=== PATIENT | male | born 1985 | race Caucasian/White ===

== ENCOUNTER → 2018-11-18 | Outpatient (CLI) | payer BC ==
--- NOTE | 2018-11-19 12:42 | US ---
EXAMINATION TYPE: US groin LT DATE OF EXAM: 11/18/2018 COMPARISON: NONE CLINICAL HISTORY: R10.30 Groin Pain. Pain left groin for 6 months, getting worse Scanned within left groin, area of concern, lymph node noted = 2.1 x 0.5 x 1.4cm Suspicious masses or cysts are not otherwise evident. Consider muscle injury. If there is concern injury at the muscle insertion at the insertion on the pe lvis, MRI may be more sensitive for identification. IMPRESSION: 1. Lymph node in the region of the patient's reported left groin pain. 2. No suspicious inguinal hernia by ultrasound.
== END ==
LOC: RADUSWWP 16:51
PROVIDERS: ATTEND Family Medicine
DX: R10.30 Lower abdominal pain, unspecified (principal); R10.2 Pelvic and perineal pain

== ENCOUNTER → 2019-06-13 | Outpatient (CLI) | payer BC ==
--- NOTE | 2019-06-13 16:22 | US ---
EXAMINATION TYPE: US scrotum with doppler. TECHNIQUE: Grayscale and color Doppler Duplex imaging performed of the scrotum. DATE OF EXAM: 06/13/2019 COMPARISON: NONE CLINICAL HISTORY: 33-year-old male N50.812 LT TESTICULAR PAIN. FINDINGS: EXAM MEASUREMENTS: TESTICLES: Right Testicle: 4.1 x 1.8 x 2.9 cm Left Testicle: 4.3 x 2.4 x 3.2 cm Bilateral testicular microlithiasis. Multiple conglomerate masses within the left testicle measures 4.6 x 1.9 x 2.5 cm. Demonstrates hypervascularity and microcalcifications. EPIDIDYMIS HEAD: Right Epididymis: 1.0 x 0.6 cm Left Epididymis: 0.8 x 1.0 cm Doppler performed to assess for testicular vascularity; good bilateral color flow and waveforms are s een. There is no evidence of testicular torsion. Presence of hydroceles: none Presence of varicoceles: none IMPRESSION: 1. Multiple vascular, conglomerate masses involving most of the left testicular parenchyma. There is background of testicular microlithiasis. Further urologic evaluation and management recommended for f indings highly suggestive of testicular carcinoma. 2. No sonographic evidence for testicular torsion. No hydrocele.
== END | disposition home or self-care (01) ==
LOC: RADUSWWP 15:36
PROVIDERS: ATTEND Family Medicine
DX: N50.1 Vascular disorders of male genital organs (principal); N50.89 Other specified disorders of the male genital organs
CPT/HCPCS: 76870; 93975

== ENCOUNTER → 2019-06-19 | Outpatient (CLI) | payer BC ==
--- NOTE | 2019-06-20 09:25 | CT ---
EXAMINATION TYPE: CT abdomen pelvis wo/w con DATE OF EXAM: 06/19/2019 COMPARISON: Scrotal ultrasound dated 06/13/2019 HISTORY: Left sided testicular mass. CT DLP: 861.2 mGycm Automated exposure control for dose reduction was used. TECHNIQUE: Helical acquisition of images was performed from the lung bases through the pelvis. CONTRAST: Performed with Oral Contrast and without and with IV Contrast, patient injected with 100ml mL of Isov ue 300. FINDINGS: Unenhanced images demonstrate no evidence of nephrolithiasis nor cholelithiasis. No intramu ral hematoma of the aorta. LUNG BASES: No significant abnormality is appreciated. LIVER/GB: No suspicious hepatic mass. No radiopaque calculi in the gallbladder. PANCREAS: No significant abnormality is seen. SPLEEN: No significant abnormality is seen. ADRENALS: No significant abnormality is seen. KIDNEYS: There is a punctate 3 mm too small to accurately characterize left renal lesion in the mid p ole on series 9 image 23. Remainder the kidneys enhance homogeneously. No uroepithelial thickening. N o hydronephrosis. No nephrolithiasis. FREE AIR: No free air is visualized. ADENOPATHY: No greater than 1 cm short axis lymph node in the abdomen or pelvis. No suspicious adeno liliana in the abdomen or pelvis. Few scattered sub-5 mm mesenteric lymph nodes. OSSEOUS STRUCTURES: No significant abnormality is seen. BOWEL: Appendix is air-filled and within normal limits. Small bowel is unremarkable. Large bowel is limited as oral contrast does not extend into the large bowel and there is moderate degree colonic fe roxy stasis and nondistention of the sigmoid colon. No dilated large or small bowel. IMPRESSION: NO SUSPICIOUS ADENOPATHY IN THE ABDOMEN OR PELVIS. NO SUSPICIOUS OSSEOUS LESION. NO CT EVIDENCE OF SCERAL METASTASIS IN THE ABDOMEN OR PELVIS.
== END | disposition home or self-care (01) ==
LOC: RADCTMAIN 15:45
PROVIDERS: ATTEND Nurse Practitioner Family
DX: N50.9 Disorder of male genital organs, unspecified (principal); R93.812 Abnormal radiologic findings on diagnostic imaging of left testicle
CPT/HCPCS: 74178; Q9967

== ENCOUNTER → 2019-06-22 | Outpatient (CLI) | payer BC | END | disposition home or self-care (01) | LOC: LABWHC1 15:08 | PROVIDERS: ATTEND Urology | DX: N50.9 Disorder of male genital organs, unspecified (principal) | CPT/HCPCS: 36415 ==

== ENCOUNTER → 2019-10-28 | Outpatient (CLI) | payer BC ==
--- NOTE | 2019-10-29 22:16 | XR ---
EXAMINATION TYPE: XR chest 2V DATE OF EXAM: 10/28/2019 COMPARISON: None HISTORY: 34-year-old male C62.92, testicular cancer TECHNIQUE: Frontal and lateral views FINDINGS: The cardiomediastinal silhouette, aorta, and pulmonary vasculature are within normal limits. Lungs an d pleural spaces are clear. IMPRESSION: No acute cardiopulmonary process.
--- NOTE | 2019-10-29 22:56 | CT ---
EXAMINATION TYPE: CT abdomen pelvis w con DATE OF EXAM: 10/28/2019 COMPARISON: October 18, 2019 HISTORY: 33-year-old male C62.92, follow-up testicular ca TECHNIQUE: Contiguous axial scanning of the abdomen and pelvis following administration of 100 ml Iso todd 300 IV contrast. Delayed images through the kidneys and coronal/sagittal reconstructions perform ed. CT DLP: 456.1 mGycm Automated exposure control for dose reduction was used. FINDINGS: Heart normal size without pericardial effusion. Lung bases clear without pleural effusion. No focal liver lesion or biliary ductal dilatation. Portal venous system is patent. Gallbladder, adrenal glands, kidneys, spleen, and pancreas appear within normal limits. No dilated small bowel, free fluid, or free air. Normal appendix. Scattered mild to moderate stool burden. Oral contrast progressed to the distal cantrell sverse colon. No pericolonic inflammatory change. Scattered small mesenteric and retroperitoneal lymph nodes are unchanged. No progressive or enlarged abdominal lymph nodes are identified. Bladder urine distended. Prostate gland measures 4.0 cm wide. No abnormal fluid collection in the pel vis or pelvic lymphadenopathy seen. Bones: No osseous destructive process. IMPRESSION: NO EVIDENCE FOR METASTATIC DISEASE IN THE ABDOMEN OR PELVIS.
== END | disposition home or self-care (01) ==
LOC: RADCTMAIN 09:57
PROVIDERS: ATTEND Urology
DX: C62.92 Malignant neoplasm of left testis, unspecified whether descended or undescended (principal); Z88.1 Allergy status to other antibiotic agents
CPT/HCPCS: 71046; 74177; Q9967

== ENCOUNTER → 2020-04-29 | Outpatient (CLI) | payer BC ==
--- NOTE | 2020-04-29 15:55 | XR ---
EXAMINATION TYPE: XR chest 2V DATE OF EXAM: 04/29/2020 COMPARISON: NONE HISTORY: Chest pain TECHNIQUE: Frontal and lateral views of the chest are obtained. FINDINGS: There is no focal air space opacity. No evidence for pneumothorax. No pleural effusion. The cardiac silhouette size is within normal limits. The osseous structures are grossly intact. IMPRESSION: 1. No acute cardiopulmonary process.
--- NOTE | 2020-04-30 03:59 | CT ---
EXAMINATION TYPE: CT abdomen pelvis w con DATE OF EXAM: 04/29/2020 COMPARISON: HISTORY: Follow up for testicular cancer. CT DLP: 512.7 mGycm Automated exposure control for dose reduction was used. CONTRAST: Performed with IV Contrast, patient injected with 100ml mL of Isovue 300. Lung bases are clear. There is no pleural effusion. Heart size is normal. There is no pericardial eff usion. Liver spleen stomach pancreas gallbladder appear normal. Bile ducts are not dilated. There is no adre nal mass. Kidneys show satisfactory contrast opacification. There is no hydronephrosis. Delayed image s show normal renal excretion. There is no retroperitoneal adenopathy. Ureters are not dilated. There is normal contrast opacificati on of the small bowel. Appendix is not seen. There is no sign of thickened appendix. There is no mese nteric edema. There is no ascites or free air. There is no bowel obstruction. Bladder distends smooth ly. There is no inguinal hernia. Left testicle appears absent. There is no evidence of a pelvic mass. There is no free fluid in the pelvis. There is no evidence of pelvic lymphadenopathy. The lumbar vertebra have normal alignment. The posterior elements are intact. Bony pelvis is intact. Hip joints appear normal. IMPRESSION: Negative CT scan abdomen and pelvis. No evidence of recurrent tumor. No adverse change compared to ol d exam.
== END | disposition home or self-care (01) ==
LOC: RADCTMAIN 15:35
PROVIDERS: ATTEND Urology
DX: C62.92 Malignant neoplasm of left testis, unspecified whether descended or undescended (principal)
CPT/HCPCS: 71046; 74177; Q9967

== ENCOUNTER → 2020-05-09 | Outpatient (CLI) | payer BC | END | disposition home or self-care (01) | LOC: LABWHC1 11:21 | PROVIDERS: ATTEND Urology | DX: C62.90 Malignant neoplasm of unspecified testis, unspecified whether descended or undescended (principal) | CPT/HCPCS: 36415 ==

== ENCOUNTER → 2020-11-28 | Outpatient (CLI) | payer BC ==
[2020-11-28 18:11] LABS: African American GFR (CKD) >90 (>60 ml/min/1.73 sqM); Blood Urea Nitrogen 15 mg/dL (9-20); LDH 412 U/L (313-618); Non-African American GFR(CKD) >90 (>60 ml/min/1.73 sqM)
--- NOTE | 2020-11-28 22:15 | XR ---
EXAMINATION TYPE: XR chest 2V DATE OF EXAM: 11/28/2020 COMPARISON: 04/29/2020 INDICATION: Left testicular cancer TECHNIQUE: Frontal and lateral views of the chest are obtained. FINDINGS: The heart size is normal. The pulmonary vasculature is normal. The lungs are clear. IMPRESSION: 1. No acute pulmonary process. 2. No suspicious changes to suggest metastatic disease.
--- NOTE | 2020-11-29 18:23 | CT ---
EXAMINATION TYPE: CT abdomen pelvis w con DATE OF EXAM: 11/28/2020 COMPARISON: 04/29/2020 INDICATION: testicular CA DLP: 523 mGycm, Automated exposure control for dose reduction was used. CONTRAST: 100 mL of Isovue 300. Study performed with Oral Contrast TECHNIQUE: Axial images were obtained from above the diaphragm to the pubic rami in the axial plane a t 5 mm thick sections. Reconstructed images are reviewed on the computer in the coronal plane. FINDINGS: Limited CT sections are obtained the lung bases. The lung bases are clear. CT ABDOMEN: Liver: Normal Spleen: Normal Pancreas: Normal Adrenal glands: The adrenal glands are normal. Gallbladder: Normal Kidneys: No masses are evident. No hydronephrosis is present. No cysts are present. Delayed images were obtained through the kidneys, which remain unremarkable. Aorta: Normal Inferior vena cava: Normal. CT PELVIS: Loops of bowel within the abdomen and pelvis are normal. There are loops of bowel which are incom pletely distended or lack oral contrast limiting their evaluation. Appendix: Normal as visualized. Urinary bladder: Normal. Genitourinary structures: Prostate is normal Osseous structures: No suspicious lytic or sclerotic lesions. Lymphadenopathy: No suspicious lymphadenopathy is evident. Periaortic adenopathy at the level of the renal arteries is not identified. Iliac and inguinal obturator canal para-aortic and retrocaval adeno liliana is not evident. IMPRESSIONS: 1. No suspicious changes to suggest metastatic disease
== END | disposition home or self-care (01) ==
LOC: RADCTMAIN 16:18
PROVIDERS: ATTEND Urology
DX: C62.92 Malignant neoplasm of left testis, unspecified whether descended or undescended (principal)
CPT/HCPCS: 82565; 83615; 84520; 82105; 71046; 74177; Q9967

== ENCOUNTER → 2021-06-16 | Outpatient (CLI) | payer BC ==
--- NOTE | 2021-06-17 07:20 | CT ---
EXAMINATION TYPE: CT ChestAbdPelvis w con DATE OF EXAM: 06/16/2021 COMPARISON: CT abdomen and pelvis November 28, 2020 and older studies. HISTORY: Follow up for testicular cancer. CT DLP: 829.3 mGycm. Automated Exposure Control for Dose Reduction was Utilized. CONTRAST: CT scan of the thorax, abdomen and pelvis is performed with oral and with IV Contrast, patient inject ed with 100ml mL of Isovue 300. FINDINGS: LUNGS: The lungs are grossly clear, there is no concerning parenchymal mass or nodule identified. T here is no pleural effusion or pneumothorax seen. The tracheobronchial tree is patent. MEDIASTINUM: There are no greater than 1 cm hilar or mediastinal lymph nodes. No cardiomegaly or pe ricardial effusion is seen. OTHER: Subareolar flame-shaped gynecomastia bilaterally is present. LIVER/GB: No significant abnormality is appreciated. PANCREAS: No significant abnormality is seen. SPLEEN: No significant abnormality is seen. ADRENALS: No significant abnormality is seen. KIDNEYS: No significant abnormality is seen. BOWEL: Oral contrast reaches level of the right colon. No suspicious small or large bowel dilatation. Normal-appearing appendix from the cecum. GENITAL ORGANS: Left testicle is surgically absent. LYMPH NODES: No new greater than 1cm abdominal or pelvic lymph nodes are appreciated with particular attention to the retroperitoneum. OSSEOUS STRUCTURES: No significant abnormality is seen. OTHER: No significant additional abnormality is seen. IMPRESSION: No suspicious new mass or adenopathy to suggest neoplastic recurrence.
== END | disposition home or self-care (01) ==
LOC: RADCTMAIN 15:36
PROVIDERS: ATTEND Urology
DX: C62.10 Malignant neoplasm of unspecified descended testis (principal)
CPT/HCPCS: 71260; 74177; Q9967

== ENCOUNTER 2022-01-26 09:44 | Emergency (ER) | payer BC ==
[2022-01-26 09:50] VITALS: RESP 18; TEMP 98.2
[2022-01-26] MEDS ORDERED: SODIUM CHLORIDE 0.9% 1,000 ML IV STA (10:05)
--- NOTE | 2022-01-26 10:12 | ED ---
Arrhythmia/Palpitations HPI - General Chief Complaint: Arrhythmia/Palpitations Stated Complaint: palpitations Time Seen by Provider: 01/26/22 10:03 Source: patient, family, RN notes reviewed, old records reviewed Mode of arrival: ambulatory Limitations: no limitations - History of Present Illness Initial Comments: This is a well-appearing 36-year-old male who presents to the emergency room with complaints of palpitations that lasted four hours. Patient states he woke up to get ready for work at 4 AM and felt palpitations unti aroudn 8 AM. Symptoms have resolved at this time. He continues to have chest tightness at this time. He states he does have some nausea but no vomiting. No shortness of breath. Denies any diaphoresis. He denies any medical history, no medicines on a daily basis. He states that he was diagnosed with an upper respiratory infection last week and finished his prescribed antibiotics and steroids. He is a nonsmoker, no family history of sudden cardiac . MD Complaint: rapid heart beat, "heart racing", "skipped beats", palpitations -: hour(s) (4) Context: occurred during rest Associated Symptoms: nausea/vomiting (no vomiting) - Related Data Home Medications Medication Instructions Recorded Confirmed Fluticasone Furoate [Flonase 1 spray EA NOSTRIL BID 01/26/22 01/26/22 Sensimist] Multivitamin/Iron/Folic Acid 1 tab PO DAILY 01/26/22 01/26/22 [Centrum Adults Tablet] Allergies Allergy/AdvReac Type Severity Reaction Status Date / Time cefprozil [From Cefzil] Allergy Rash/Hives Verified 01/26/22 10:56 Review of Systems ROS Statement: Those systems with pertinent positive or pertinent negative responses have been documented in the HPI. ROS Other: All systems not noted in ROS Statement are negative. Past Medical History Past Medical History: Cancer Additional Past Medical History / Comment(s): testicular CA 2019 History of Any Multi-Drug Resistant Organisms: None Reported Past Surgical History: Hernia Repair, Orthopedic Surgery Additional Past Surgical History / Comment(s): testicular surgery Past Psychological History: Anxiety Smoking Status: Former smoker Past Alcohol Use History: Occasional Past Drug Use History: None Reported General Exam Limitations: no limitations General appearance: alert, in no apparent distress Head exam: Present: atraumatic Eye exam: Absent: scleral icterus, conjunctival injection, periorbital swelling ENT exam: Present: normal oropharynx, mucous membranes moist Expanded Mouth exam: Present: normal external inspection, tongue normal, tongue elevation. Absent: drooling, trismus, muffled voice Throat exam: negative: tonsillar erythema, tonsillomegaly, tonsillar exudate, R peritonsillar mass, L peritonsillar mass Respiratory exam: Present: normal lung sounds bilaterally. Absent: respiratory distress, wheezes, rales, rhonchi, stridor, chest wall tenderness, accessory muscle use Cardiovascular Exam: Present: regular rate, normal rhythm GI/Abdominal exam: Present: soft. Absent: distended, tenderness, guarding, rebound, rigid Extremities exam: Present: normal capillary refill. Absent: pedal edema Back exam: Present: normal inspection, full ROM. Absent: tenderness, CVA tenderness (R), CVA tenderness (L), rash noted Neurological exam: Present: alert, oriented X3 Psychiatric exam: Present: normal affect, normal mood Skin exam: Present: warm, dry, intact, normal color. Absent: rash, cyanosis, diaphoretic, petechiae, pallor Course Vital Signs 01/26/22 01/26/22 09:44 11:19 Temperature 98.2 F Pulse Rate 89 70 Respiratory 18 18 Rate Blood Pressure 138/85 124/85 O2 Sat by Pulse 100 100 Oximetry EKG Findings - EKG Results: EKG: sinus rhythm (Ventricular rate 83, IA interval 0.163, QRS 0.89, QTC 0.394; borderline right axis deviation) Medical Decision Making - Medical Decision Making Chest x-ray shows no acute cardiopulmonary process. EKG shows sinus rhythm. Troponin is negative at 0.012. There is no evidence of leukocytosis and hemoglobin and hematocrit are stable. Electrolytes are unremarkable. At this time I do not have a specific cause for the patient's palpitations. We did discuss dehydration, caffeine use and anxiety. Vital signs are stable. There was no evidence of ectopy on the monitor during ER stay. Patient was instructed to increase his fluid intake follow-up with his primary care doctor this week return to the emergency room with any new or concerning symptoms. Case discussed with Dr. Spencer - Lab Data Result diagrams: 01/26/22 10:09 01/26/22 10:09 Lab Results 01/26/22 01/26/22 01/26/22 Range/Units 10:09 10:09 10:09 WBC 6.5 (3.8-10.6) k/uL RBC 5.43 (4.30-5.90) m/uL Hgb 16.3 (13.0-17.5) gm/dL Hct 48.8 (39.0-53.0) % MCV 90.0 (80.0-100.0) fL MCH 30.0 (25.0-35.0) pg MCHC 33.3 (31.0-37.0) g/dL RDW 12.1 (11.5-15.5) % Plt Count 249 (150-450) k/uL MPV 7.9 Neutrophils % 67 % Lymphocytes % 19 % Monocytes % 8 % Eosinophils % 3 % Basophils % 1 % Neutrophils # 4.3 (1.3-7.7) k/uL Lymphocytes # 1.3 (1.0-4.8) k/uL Monocytes # 0.5 (0-1.0) k/uL Eosinophils # 0.2 (0-0.7) k/uL Basophils # 0.0 (0-0.2) k/uL Sodium 138 (137-145) mmol/L Potassium 4.0 (3.5-5.1) mmol/L Chloride 103 (98-107) mmol/L Carbon Dioxide 25 (22-30) mmol/L Anion Gap 10 mmol/L BUN 12 (9-20) mg/dL Creatinine 1.03 (0.66-1.25) mg/dL Est GFR (CKD-EPI)AfAm >90 (>60 ml/min/1.73 sqM) Est GFR (CKD-EPI)NonAf >90 (>60 ml/min/1.73 sqM) Glucose 140 H (74-99) mg/dL Calcium 9.7 (8.4-10.2) mg/dL Magnesium 2.0 (1.6-2.3) mg/dL Total Bilirubin 0.6 (0.2-1.3) mg/dL AST 35 (17-59) U/L ALT 33 (4-49) U/L Alkaline Phosphatase 71 (38-126) U/L Troponin I <0.012 (0.000-0.034) ng/mL Total Protein 6.6 (6.3-8.2) g/dL Albumin 4.4 (3.5-5.0) g/dL Disposition Clinical Impression: Palpitations Disposition: HOME SELF-CARE Condition: Good Instructions (If sedation given, give patient instructions): Heart Palpitations (ED) Additional Instructions: Increase your fluid intake. Follow-up with the primary care doctor this week. Return to the emergency room with any new or concerning symptoms Is patient prescribed a controlled substance at d/c from ED?: No Referrals: Cecil Roberts III, MD [Primary Care Provider] - 1-2 days Time of Disposition: 11:23
[2022-01-26 10:26] LABS: Basophils % (A) 1 %; Eosinophils # (A) 0.2 k/uL (0-0.7); Eosinophils % (A) 3 %; HCT 48.8 % (39.0-53.0); HGB 16.3 gm/dL (13.0-17.5); Lymphocytes # (A) 1.3 k/uL (1.0-4.8); Lymphocytes % (A) 19 %; MCHC 33.3 g/dL (31.0-37.0); Mean Platelet Volume 7.9; Monocytes # (A) 0.5 k/uL (0-1.0); Monocytes % (A) 8 %; Neutrophils # (A) 4.3 k/uL (1.3-7.7); Neutrophils % (A) 67 %; Platelet Count 249 k/uL (150-450); RBC 5.43 m/uL (4.30-5.90); RDW 12.1 % (11.5-15.5); WBC 6.5 k/uL (3.8-10.6)
--- NOTE | 2022-01-26 10:36 | XR ---
EXAMINATION TYPE: XR chest 2V DATE OF EXAM: 01/26/2022 COMPARISON: 11/28/2020 HISTORY: 36-year-old male dysrhythmia TECHNIQUE: PA and lateral views FINDINGS: The cardiomediastinal silhouette, aorta, and pulmonary vasculature are within normal limits. Lungs an d pleural spaces are clear. IMPRESSION: No acute cardiopulmonary process.
[2022-01-26 10:48] LABS: ALT 33 U/L (4-49); AST 35 U/L (17-59); African American GFR (CKD) >90 (>60 ml/min/1.73 sqM); Albumin 4.4 g/dL (3.5-5.0); Alkaline Phosphatase 71 U/L (38-126); Anion Gap 10 mmol/L; Blood Urea Nitrogen 12 mg/dL (9-20); Calcium 9.7 mg/dL (8.4-10.2); Carbon Dioxide 25 mmol/L (22-30); Chloride 103 mmol/L (98-107); Glucose 140 mg/dL (74-99); Non-African American GFR(CKD) >90 (>60 ml/min/1.73 sqM); Sodium 138 mmol/L (137-145); Total Bilirubin 0.6 mg/dL (0.2-1.3); Total Protein 6.6 g/dL (6.3-8.2)
[2022-01-26 11:20] VITALS: BP 124/85; PULSE 70
== END 2022-01-26 11:57 | disposition home or self-care (01) ==
LOC: EC 09:44
DX: R00.2 Palpitations (principal); R07.89 Other chest pain; R11.0 Nausea; Z87.891 Personal history of nicotine dependence; Z88.1 Allergy status to other antibiotic agents
CPT/HCPCS: 36415; 71046; 80053; 83735; 84484; 85025; 93005; 96360; 99285

== ENCOUNTER → 2022-02-27 | Outpatient (CLI) | payer BC | END | disposition home or self-care (01) | LOC: LABWHC1 15:35 | PROVIDERS: ATTEND Urology | DX: C62.10 Malignant neoplasm of unspecified descended testis (principal) | CPT/HCPCS: 36415; 82105; 83615 ==

== ENCOUNTER → 2022-03-17 | Outpatient (CLI) | payer BC ==
--- NOTE | 2022-03-18 19:11 | CA ---
Transthoracic Echo Report Name: Ilya Hummel Age: 36 Gender: M : 1985 Exam Date: 03/17/2022 15:08 Exam Location: [facility] Ht (in): 72 Wt (lb): 180 Ordering Physician: Cecil Roberts MD Attending/Referring Phys: SOFIA, Armando Pre Wave Assembler Baylee Ferrara RDCS Procedure CPT: Indications: R00.0 TACHYCARDIA, UNSPECIFIED Cardiac Hx: Technical Quality: Good Contrast 1: N/A Total Dose (mL): Contrast 2: Total Dose (mL): MEASUREMENTS (Male / Female) Normal Values 2D ECHO LV Diastolic Diameter PLAX 4.5 cm 4.2 - 5.9 / 3.9 - 5.3 cm LV Systolic Diameter PLAX 3.1 cm IVS Diastolic Thickness 1.0 cm 0.6 - 1.0 / 0.6 - 0.9 cm LVPW Diastolic Thickness 1.2 cm 0.6 - 1.0 / 0.6 - 0.9 cm LV Relative Wall Thickness 0.5 RV Internal Dim ED PLAX 2.2 cm LA Systolic Diameter LX 3.2 cm 3.0 - 4.0 / 2.7 - 3.8 cm M-MODE Aortic Root Diameter MM 3.3 cm LA Systolic Diameter MM 3.1 cm LA Ao Ratio MM 0.9 MV E Point Septal Separation 0.3 cm AV Cusp Separation MM 2.2 cm DOPPLER MV Area PHT 2.8 cm??? Mitral E Point Velocity 64.2 cm/s Mitral A Point Velocity 49.2 cm/s Mitral E to A Ratio 1.3 MV Deceleration Time 267.8 ms MV E' Velocity 9.5 cm/s Mitral E to MV E' Ratio 6.8 FINDINGS Left Ventricle Normal Left ventricular size, wall thickness, systolic function with no obvious regional wall motion abnormalities. Left ventricular ejection fraction is estimated at 60 %. Right Ventricle Normal right ventricular size and function. Right Atrium Normal right atrial size. Left Atrium Normal left atrial size. Mitral Valve Redundant mitral valve and mitral valve prolapse. Mild mitral regurgitation. Aortic Valve Poorly visualized aortic valve. Cannot exclude bicuspid aortic valve Tricuspid Valve Structurally normal tricuspid valve. Trace tricuspid regurgitation. Pulmonic Valve Structurally normal pulmonic valve. Pericardium Normal pericardium. Aorta Normal size aortic root and proximal ascending aorta. CONCLUSIONS Normal left ventricular dimension and systolic function Normal right ventricular dimension and systolic function Mitral valve prolapse with mild mitral regurgitation Poorly visualized aortic valve. Cannot exclude bicuspid aortic valve Previewed by: Dr. Max Garcia MD (Electronically Signed) Final Date: 18 March 2022 19:10
== END | disposition home or self-care (01) ==
LOC: RADECHMAIN 15:00
PROVIDERS: ATTEND Family Medicine
DX: I34.0 Nonrheumatic mitral (valve) insufficiency (principal)
CPT/HCPCS: 93306

== ENCOUNTER → 2023-03-05 | Outpatient (CLI) | payer BC | END | disposition home or self-care (01) | LOC: LABWHC1 14:54 | PROVIDERS: ATTEND Urology | DX: C62.10 Malignant neoplasm of unspecified descended testis (principal) | CPT/HCPCS: 36415; 82105; 83615 ==

== ENCOUNTER → 2023-09-07 | Outpatient (CLI) | payer OTHER ==
[2023-09-07 21:46] LABS: HCG,Quantitative Serum <3.0 mIU/mL (0.0-6.0)
[2023-09-07 21:56] LABS: LDH 169 U/L (120-246)
== END | disposition home or self-care (01) ==
LOC: LABWHC1 15:21
PROVIDERS: ATTEND Urology
DX: C62.10 Malignant neoplasm of unspecified descended testis (principal)
CPT/HCPCS: 36415; 82105; 83615; 84702

== ENCOUNTER → 2023-09-28 | Outpatient (CLI) | payer OTHER ==
--- NOTE | 2023-09-28 20:51 | XR ---
EXAMINATION TYPE: XR chest 2V DATE OF EXAM: 09/28/2023 3:23 PM CLINICAL INDICATION:Male, 37 years old with history of C62.12 MALIGNANT NEOPLASM OF DESCENDED LEFT TE STIS; PHH COMPARISON: Chest radiographs from 01/26/2022 TECHNIQUE: XR chest 2V Frontal and lateral views of the chest. FINDINGS: Lungs/Pleura: There is no evidence of pleural effusion, focal consolidation, or pneumothorax. Pulmonary vascularity: Unremarkable. Heart/mediastinum: Cardiomediastinal silhouette is unremarkable. Musculoskeletal: No acute osseous pathology. IMPRESSION: No acute cardiopulmonary disease/process.
== END | disposition home or self-care (01) ==
LOC: RADXRMAIN 15:11
PROVIDERS: ATTEND Urology
DX: C62.12 Malignant neoplasm of descended left testis (principal)
CPT/HCPCS: 71046

== ENCOUNTER → 2024-01-11 | Outpatient (CLI) | payer OTHER ==
--- NOTE | 2024-01-16 22:01 | MR ---
EXAMINATION TYPE: MR knee LT wo con DATE OF EXAM: 01/11/2024 COMPARISON: NONE HISTORY: left knee pain due to fall TECHNIQUE: Multiplanar, multisequence images of the knee is performed without IV contrast. FINDINGS: MEDIAL MENISCUS: Abnormal signal posterior horn extends to the inferior articular surface sagittal im age 28. LATERAL MENISCUS: Anterior and posterior horns are intact without tear. CRUCIATE LIGAMENTS: The anterior and posterior cruciate ligaments are intact and unremarkable. COLLATERAL LIGAMENTS: The medial collateral ligament and lateral collateral ligament complex are inta ct and unremarkable. EXTENSOR MECHANISM: Visualized quadriceps and patellar tendons are intact. EFFUSION: Small size suprapatellar joint effusion. POPLITEAL CYST: No popliteal/dumont cyst. TRICOMPARTMENT SPACES: Tricompartment joint space is maintained. No significant spurring. CARTILAGE: Tricompartmental articular cartilage is preserved. BONE MARROW SIGNAL: No focal abnormal marrow signal is appreciated. OTHER: No additional significant abnormality is appreciated. IMPRESSION: 1. Full-thickness tear posterior horn medial meniscus. 2. Small-size suprapatellar joint effusion.
== END | disposition home or self-care (01) ==
LOC: RADMRIMAIN 15:35
PROVIDERS: ATTEND Orthopaedic Surgery
DX: M23.92 Unspecified internal derangement of left knee

== ENCOUNTER → 2024-12-06 | Outpatient (CLI) | payer OTHER ==
[2024-12-06 18:30] LABS: Basophils # (A) 0.06 X 10*3/uL (0.00-0.10); Basophils % (A) 1.0 %; Eosinophils # (A) 0.27 X 10*3/uL (0.04-0.35); Eosinophils % (A) 4.5 %; HCT 46.0 % (39.6-50.0); HGB 15.2 g/dL (13.0-17.0); Immature Grans, Automated 0.20 %; Lymphocytes # (A) 2.00 X 10*3/uL (0.90-5.00); Lymphocytes % (A) 33.7 %; MCH 29.5 pg (27.0-32.0); MCHC 33.0 g/dL (32.0-37.0); MCV 89.3 FL (80.0-97.0); Monocytes # (A) 0.71 X 10*3/uL (0.20-1.00); Monocytes % (A) 12.0 %; NRBC Per 100 WBC 0 X 10*3/uL (0.00-0.01); Neutrophils # (A) 2.89 X 10*3/uL (1.80-7.70); Neutrophils % (A) 48.6 %; Platelet Count 236 X 10*3/uL (140-440); RBC 5.15 X 10*6/uL (4.40-5.60); RDW 11.9 % (11.5-14.5); WBC 5.94 X 10*3/uL (4.50-10.00)
[2024-12-06 19:22] LABS: ALT 27 U/L (10-49); AST 22 U/L (14-35); Albumin 5.0 g/dL (3.8-4.9); Albumin/Globulin Ratio 2.50 Ratio (1.60-3.17); Alkaline Phosphatase 70 U/L (41-126); Anion Gap 13.10 mmol/L (4.00-12.00); BUN/Creat Ratio 12.45 Ratio (12.00-20.00); Blood Urea Nitrogen 13.7 mg/dL (9.0-27.0); Calcium 10.0 mg/dL (8.7-10.3); Carbon Dioxide 24.9 mmol/L (21.6-31.8); Chloride 102 mmol/L (96-109); Cholesterol 218.00 mg/dL (0.00-200.00); Globulin 2.0 g/dL (1.6-3.3); Glucose 103 mg/dL (70-110); HCG,Quantitative Serum <3.0 mIU/mL (0.0-6.0); HDL Cholesterol 55.00 mg/dL (40.00-60.00); LDH 160 U/L (120-246); LDL Cholesterol,Calculated 132.6 mg/dL (0.0-131.0); Potassium 3.9 mmol/L (3.5-5.5); Sodium 140 mmol/L (135-145); Total Protein 7.0 g/dL (6.2-8.2); Triglycerides 152.00 mg/dL (0.00-149.00); VLDL Calculation 30.40 mg/dL (5.00-40.00)
[2024-12-06 20:01] LABS: Alpha Fetoprotein, Tumor Mkr <3.00 ng/mL (0.00-7.90); Hepatitis C IgG Antibody Nonreactive (Nonreactive)
== END | disposition home or self-care (01) ==
LOC: LABWHC1 14:29
PROVIDERS: ATTEND Urology
DX: Z13.1 Encounter for screening for diabetes mellitus (principal); Z13.220 Encounter for screening for lipoid disorders; Z13.29 Encounter for screening for other suspected endocrine disorder; Z11.59 Encounter for screening for other viral diseases; C62.12 Malignant neoplasm of descended left testis
CPT/HCPCS: 36415; 80053; 80061; 82105; 83036; 83615; 84443; 84702; 85025; 86803

== ENCOUNTER → 2024-12-06 | Outpatient (CLI) | payer OTHER ==
--- NOTE | 2024-12-06 15:42 | XR ---
EXAMINATION TYPE: XR chest 2V DATE OF EXAM: 12/06/2024 3:34 PM COMPARISON: 09/28/2023 CLINICAL INDICATION: Male, 39 years old with history of C62.10 TESTICULAR CANCER, Chest pain TECHNIQUE: XR chest 2V views of the chest are obtained. FINDINGS: There is no focal air space opacity. No evidence for pneumothorax. No pleural effusion. The cardiac silhouette size is within normal limits. The osseous structures are grossly intact. IMPRESSION: 1. No acute cardiopulmonary process. [facility], , 12/06/2024 3:39 PM
--- NOTE | 2024-12-06 17:11 | CT ---
EXAMINATION TYPE: CT abdomen w con CT DLP: 407.20 mGycm, Automated exposure control for dose reduction was used. DATE OF EXAM: 12/06/2024 4:29 PM COMPARISON: CT chest abdomen 09/15/2022, CT chest abdomen pelvis 06/16/2021, CT abdomen and pelvis 021 CLINICAL INDICATION:Male, 39 years old with history of C62.10 TESTICULAR CANCER; hx of testicular CA, in remission since 2019 TECHNIQUE: Standard CT of the abdomen following the administration of 100 cc of Isovue 300 IV contr ast material and oral contrast. Coronal and sagittal reformats were performed. FINDINGS: LOWER CHEST: Unremarkable ABDOMEN LIVER: Unremarkable GALLBLADDER AND BILE DUCTS: Unremarkable. PANCREAS: Unremarkable. SPLEEN: Unremarkable. ADRENAL GLANDS: Unremarkable. KIDNEYS AND URETERS: No evidence of hydronephrosis or renal calculus. The kidneys enhance symmetrical ly. Contrast is demonstrated within the collecting system on the delayed phase. STOMACH AND BOWEL: Stomach and duodenum are unremarkable. No focal bowel wall thickening. Enteric con trast reaches the mid small bowel. The visualized portion of the appendix is unremarkable. No evidenc e of bowel obstruction. PERITONEUM: No evidence of pneumoperitoneum or free fluid. VASCULATURE: No evidence of aortic aneurysm. MUSCULOSKELETAL: No acute osseous abnormalities. No aggressive osseous lesion. LYMPH NODES: No evidence for lymphadenopathy. SOFT TISSUE/ABDOMINAL WALL: Unremarkable IMPRESSION: No acute abdominal process. No evidence for metastatic disease within the abdomen. [facility], , 12/06/2024 5:08 PM
== END | disposition home or self-care (01) ==
LOC: RADCTMAIN 15:10
PROVIDERS: ATTEND Urology
DX: C62.10 Malignant neoplasm of unspecified descended testis (principal)
CPT/HCPCS: 71046; 74160; Q9967